=== PATIENT | female | born 1970 | race Caucasian/White ===

== ENCOUNTER 2018-06-13 14:00 | Emergency (ER) | payer BC ==
[2018-06-13] MEDS ORDERED: Tetracaine 0.5% OPTH.SOL 15ML* BTL BOTH EYES ONE (14:24)
[2018-06-13] MEDS ORDERED: Fluorescein Sodium TOPICAL* 1 MG TEST STRIP OPHTHALMIC ONE (14:25)
[2018-06-13] MEDS ORDERED: Tetracaine 0.5% OPTH.SOL 4 ML* 1 DROP BTL ONE (14:37)
[2018-06-13] MEDS ORDERED: Tetan/Diph/Pertus SYR(Tdap)* 0.5 ML SYR(BOOSTRIX) use SYR IM ONE (14:40)
[2018-06-13 15:15] VITALS: BP 124/80
--- NOTE | 2018-06-13 16:10 | ED ---
Throat Pain/Nasal Congestion - HPI Summary HPI Summary: Patient is a 47-year-old year-old female who presents emergency department for left eye pain after her dog scratched her eye this morning. Patient states she was lying in bed with her dog when he reached his pop out and actually scratched her eye. She denies past medical history. Dog's immunizations are up -to-date. Patient is unaware of her last tetanus immunization. Symptoms are mild in severity. She does not wear contacts but does wear glasses. Patient denies visual disturbances. Opening eye and blinking makes symptoms worse. Nothing makes symptoms better. - History of Current Complaint Chief Complaint: EDEyeProblem Time Seen by Provider: 06/13/18 14:24 Hx Obtained From: Patient - Allergies/Home Medications Allergies/Adverse Reactions: Allergies Allergy/AdvReac Type Severity Reaction Status Date / Time No Known Allergies Allergy Verified 06/13/18 14:09 PMH/Surg Hx/FS Hx/Imm Hx Previously Healthy: Yes - Cancer History Hx Chemotherapy: No Hx Radiation Therapy: No - Immunization History Date of Tetanus Vaccine: ukn Immunizations Up to Date: Yes Infectious Disease History: No Infectious Disease History: Denies: Traveled Outside the [place] in Last 30 Days - Family History Known Family History: Positive: Non-Contributory - Social History Occupation: Employed Full-time Lives: With Family Alcohol Use: Occasionally Substance Use Type: Reports: None Smoking Status (MU): Never Smoked Tobacco Review of Systems Constitutional: Negative Positive: Photophobia, Erythema All Other Systems Reviewed And Are Negative: Yes Physical Exam Triage Information Reviewed: Yes Vital Signs On Initial Exam: Initial Vitals Temp Pulse Resp BP Pulse Ox 98.3 F 70 18 148/84 95 06/13/18 14:09 06/13/18 14:09 06/13/18 14:09 06/13/18 14:09 06/13/18 14:09 Vital Signs Reviewed: Yes Appearance: Positive: Pain Distress - Pt. lying in bed with eyes closed. present. Skin: Positive: Warm, Dry Head/Face: Positive: Normal Head/Face Inspection Eyes: Positive: Normal, EOMI, LUCY, Other: - Right eye unremarkable. Left eye with mild injection. No drainage. Anterior chamber is clear Neck: Positive: Supple Neurological: Positive: Normal, CN Intact II-III Psychiatric: Positive: Affect/Mood Appropriate Procedures - Procedure Summary Procedure Summary: Left eye was anesthetized tetracaine drops. Fluorescein dye was applied and eye was examined under Sanders lamp. There are 2 small linear areas of uptake at 12:00. Eyelid was everted and no foreign body noted. Patient tolerated well. Grossly Diagnostics - Vital Signs Vital Signs Temp Pulse Resp BP Pulse Ox 06/13/18 15:13 98.2 F 62 17 124/80 98 06/13/18 14:09 98.3 F 70 18 148/84 95 - Laboratory Lab Statement: Any lab studies that have been ordered have been reviewed, and results considered in the medical decision making process. EENT Course/Dx - Course Course Of Treatment: Patient presenting with corneal abrasions after being scratched by her dog. Tetanus was updated. Visual acuity normal as noted in chart. We'll place patient on erythromycin ointment. Advised patient to follow up with ophthalmology if pain persists. To apply cool compresses to eye. Tylenol or Motrin for pain as directed. To return to the ER for increased pain, vision changes, redness, swelling, drainage or if concerns. Patient understands and agrees with plan. - Differential Diagnoses Differential Diagnoses: Abrasion, Foreign Body, Penetrating Injury - Diagnoses Provider Diagnoses: Corneal abrasion Discharge - Sign-Out/Discharge Documenting (check all that apply): Patient Departure - Discharge Plan Condition: Good Disposition: HOME Prescriptions: Erythromycin OPTH OINT* [Erythromycin 0.5% OPTH OINT*] 1 applic LEFT EYE TID #1 ophth.oint Patient Education Materials: Corneal Abrasion (ED) Referrals: Dia Erazo MD [Primary Care Provider] - Vince Ferrera MD [Medical Doctor] - Additional Instructions: Schedule a follow up appointment with [facility] if symptoms persist Use antibiotic as directed Apply cool compresses to eye Tylenol or Motrin for pain as directed Return to ER for increased pain, fever, yellow eye discharge, redness/swelling around eye, or if concerned - Billing Disposition and Condition Condition: GOOD Disposition: Home
== END 2018-06-13 15:13 | disposition home or self-care (01) ==
LOC: ED 14:00
DX: S05.02XA Injury of conjunctiva and corneal abrasion without foreign body, left eye, initial encounter (principal); W54.1XXA Struck by dog, initial encounter; Y92.9 Unspecified place or not applicable
CPT/HCPCS: 90471; 90715; 99282; A9270-GY